=== PATIENT | female | born 1990 | race American Indian/Alaskan Native ===

== ENCOUNTER 2016-10-16 18:26 | Emergency (ER) | payer OTHER ==
--- NOTE | 2016-10-16 19:11 | ED PDOC ---
HPI: Abdomen Time Seen by Provider: 10/16/16 18:42 Chief Complaint (Nursing): Abdominal Pain Chief Complaint (Provider): Abdominal Pain History Per: Patient History/Exam Limitations: no limitations Onset/Duration Of Symptoms: Days (x3), Worse Since (over the past 24 hours) Outside of [place] travel?: No Current Symptoms Are (Timing): Still Present Location Of Pain/Discomfort: RLQ Quality Of Discomfort: Other (w/mild radiation to low back) Associated Symptoms: Chills, Nausea, Vomiting (x1, yesterday, non-bloody), Diarrhea (today, multiple episodes, watery/non-bloody/yellow), Loss Of Appetite , Other (diffuse myalgias; no vaginal complaints). denies: Urinary Symptoms Additional Complaint(s): Samuya Gomez is a 25 year old female, with no pertinent past medical history , who presents to the ED on 10/16/16 for the evaluation of RLQ abdominal pain that she has experienced over the past 3 days. Pain, further described as radiating mildly into her lower back, was initially mild in intensity but has acutely worsened over the past 24 hours; prompting ED visit. Multiple episodes of watery/non-bloody/yellow diarrhea also reported in addition to chills, diffuse myalgias, decreased appetite and a singular episode of non-bloody vomiting. Denies urinary or vaginal complaints. No medications for symptom relief taken prior to arrival. Of note, patient's LMP is reported as of 09/26/16 and, though it had arrived on time, was shorter than usual; lasting only for 3 days. PMD: [facility], [place] [facility] [place] Medical History Reviewed: Historical Data, Nursing Documentation, Vital Signs Vital Signs: Last Vital Signs Temp 98 F 10/16/16 20:11 Pulse 79 10/16/16 20:11 Resp BP 124/64 10/16/16 20:11 Pulse Ox - Medical History PMH: No Chronic Diseases - Surgical History Surgical History: (x2) - Family History Family History: States: Unknown Family Hx - Social History Current smoker - smoking cessation education provided: Yes Alcohol: Social Drugs: Denies - Home Medications Home Medications: Ambulatory Orders Medication Instructions Recorded Dicyclomine [Bentyl] 20 mg PO BID PRN #30 tab 10/16/16 Naproxen [Naprosyn] 1 tab PO BID PRN #30 tab 10/16/16 Ondansetron ODT [Zofran ODT] 1 odt PO Q6 PRN #20 odt 10/16/16 - Allergies Allergies/Adverse Reactions: Allergies Allergy/AdvReac Type Severity Reaction Status Date / Time No Known Allergies Allergy Verified 03/27/14 11:51 Review of Systems ROS Statement: Except As Marked, All Systems Reviewed And Found Negative Constitutional: Positive for: Chills, Other (diffuse myalgias) Gastrointestinal: Positive for: Nausea, Vomiting (x1, non-bloody), Abdominal Pain (RLQ), Diarrhea (yellow/watery/non-bloody, multiple episodes), Other ( decreased appetite) Genitourinary Female: Negative for: Dysuria, Frequency, Hematuria, Vaginal Discharge, Vaginal Bleeding Physical Exam - Reviewed Nursing Documentation Reviewed: Yes Vital Signs Reviewed: Yes - Physical Exam Appears: Positive for: Non-toxic, In Acute Distress (mild painful) Head Exam: Positive for: ATRAUMATIC, NORMOCEPHALIC Skin: Positive for: Normal Color, Warm, Dry Eye Exam: Positive for: Normal appearance, PERRL ENT: Positive for: Normal ENT Inspection Cardiovascular/Chest: Positive for: Regular Rate, Rhythm. Negative for: Murmur Respiratory: Positive for: Normal Breath Sounds. Negative for: Respiratory Distress Gastrointestinal/Abdominal: Positive for: Soft, Tenderness (RLQ), Other (mildly obese). Negative for: Mass, Distended, Guarding, Rebound Back: Positive for: Normal Inspection. Negative for: L CVA Tenderness, R CVA Tenderness Neurologic/Psych: Positive for: Alert, Oriented - Laboratory Results Result Diagrams: 10/16/16 19:56 10/16/16 19:56 Urine dip results: Positive for: Blood (trace), Ketones (trace). Negative for: Leukocyte Esterase, Nitrate, Glucose, Bilirubin, Protein Medical Decision Making Medical Decision Makin:33 Initial Impression: abdominal pain Differential diagnoses include but are not limited to appendicitis, colitis, enteritis, ovarian cyst, fibroid. Initial Plan: * CT A/P w/IV contrast only * Labs * PTT * PT * Upreg * Udip * Urinalysis * Urine Culture * Blood Culture * Stool Culture * OVA/Parasite * Lactated Ringer's 1000ml at 1000mls/hr * Dextrose 1000ml at 100mls/hr * Toradol 15mg IVP * Zofran 4mg IVP * Reevaluation 19:33 Udip shows trace ketones and trace blood, no leukocyte esterase. All else negative. EXAM: CT Abdomen and Pelvis With Intravenous Contrast CLINICAL HISTORY: 25 years old, female; Pain; Abdominal pain; Localized; Lower; Prior surgery; Surgery date: 6+ months; Surgery type: x2 2006 2011. Pelvis pain. Constipation x 2 days ; Additional info: Rlq pain TECHNIQUE: Axial computed tomography images of the abdomen and pelvis with intravenous contrast. This CT exam was performed using one or more of the following dose reduction techniques : automated exposure control, adjustment of the mA and/or kV according to patient size, and/ or use of iterative reconstruction technique. Coronal and sagittal reformatted images were created and reviewed. CONTRAST: 90 mL of OMNIPAQUE administered intravenously. COMPARISON: No relevant prior studies available. FINDINGS: Lower thorax: No acute findings. ABDOMEN: Liver: Mild fatty infiltration. Gallbladder and bile ducts: No calcified stones. No ductal dilation. Pancreas: No ductal dilation. No mass. Spleen: No splenomegaly. Adrenals: No mass. Kidneys and ureters: No mass. No hydronephrosis. Stomach and bowel: Apparent mild mural thickening of few jejunal loops. No associated inflammatory stranding. No obstruction. Appendix: Normal caliber. No inflammation. PELVIS: Bladder: Unremarkable. Reproductive: Small ovarian follicles ABDOMEN and PELVIS: Intraperitoneal space: No significant fluid collection. No free air. Bones/joints: No acute fracture. Soft tissues: Small umbilical hernia containing fat. Vasculature: Unremarkable. No abdominal aortic aneurysm. Lymph nodes: Several subcentimeter short axis mesenteric lymph nodes, nonspecific. IMPRESSION: 1. Possible mild enteritis. Clinical correlation is needed. 2. Incidental/non-acute findings are described above. Thank you for allowing us to participate in the care of your patient. Dictated and Authenticated by: Noble Novak MD 10/16/2016 10:08 PM Eastern Time ([place] & [place]) Labs with no clinically significant lab abnormalities Pt initially had some relief with toradol, but not complete, therefore morphine given. DW pt findings and plan of care. Pt to be dc'd on Bentyl, naprosyn, zofran. Scribe Attestation: Documented by Victoria Espinoza, acting as a scribe for Miranda Chirinos MD. Provider Scribe Attestation: All medical record entries made by the Scribe were at my direction and personally dictated by me. I have reviewed the chart and agree that the record accurately reflects my personal performance of the history, physical exam, medical decision making, and the department course for this patient. I have also personally directed, reviewed, and agree with the discharge instructions and disposition. Disposition - Clinical Impression Clinical Impression: Abdominal pain Counseled Patient/Family Regarding: Studies Performed, Diagnosis - Disposition Referrals: Grant Scott MD [Staff Provider] - 10/18/16 [facility] [Outside] Disposition: Routine/Home Disposition Time: 22:00 Condition: IMPROVED Prescriptions: Dicyclomine [Bentyl] 20 mg PO BID PRN #30 tab PRN Reason: abdominal pain Naproxen [Naprosyn] 1 tab PO BID PRN #30 tab PRN Reason: Pain Ondansetron ODT [Zofran ODT] 1 odt PO Q6 PRN #20 odt PRN Reason: Nausea/Vomiting Instructions: Acute Abdominal Pain (ED) Forms: [facility] ED School/Work Excuse
[2016-10-16] MEDS ORDERED: Lactated Ringer's 1,000 ML IV STA (19:33)
[2016-10-16] MEDS ORDERED: Dextrose 5%/Lactated Ringer's 1,000 ML IV SCH (19:45)
[2016-10-16 20:05] LABS: BASO # 0.1 K/uL (0.0-0.2); BASO % 0.7 % (0.0-2.0); EOS % 0.6 % (0.0-4.0); HEMATOCRIT 36.1 % (34.0-47.0); LYMPH # 2.5 K/uL (1.0-4.3); MEAN CELL VOLUME 89.6 fl (81.0-99.0); MEAN CORPUSCULAR HEMOGLOBIN 28.9 pg (27.0-31.0); MEAN CORPUSCULAR HGB CONC 32.2 g/dL (33.0-37.0); MEAN PLATELET VOLUME 8.6 fl (7.2-11.7); MONO # 0.5 K/uL (0.0-0.8); MONO % 6.3 % (0.0-10.0); NEUT # 4.7 K/uL (1.8-7.0); NEUT % 60.4 % (50.0-75.0); WHITE BLOOD COUNT 7.7 K/uL (4.8-10.8)
[2016-10-16 20:12] VITALS: BP 124/64; PULSE 79; TEMP 98
[2016-10-16 20:16] LABS: ALB/GLOB RATIO 1.1 (1.0-2.1); ALKALINE PHOSPHATASE 49 U/L (38-126); ALT/SGPT 28 U/L (9-52); AST/SGOT 19 U/L (14-36); BILIRUBIN,TOTAL 0.2 mg/dl (0.2-1.3); BLOOD UREA NITROGEN 12 mg/dl (7-17); CARBON DIOXIDE 28 mmol/L (22-30); CHLORIDE 104 mmol/L (98-107); GFR AFRICAN-AMERICAN > 60; GLUCOSE,RANDOM 111 mg/dL (65-105); POTASSIUM 3.6 MMOL/L (3.6-5.0); SODIUM 141 mmol/l (132-148); TOTAL PROTEIN 7.4 G/DL (6.3-8.2)
[2016-10-16 20:25] LABS: PARTIAL THROMBOPLASTIN TIME 26.1 SECONDS (23.3-32.5); RBC URINE 6 /hpf (0-3); URINE BACTERIA RARE (<OCC); URINE BILIRUBIN NEGATIVE (NEGATIVE); URINE COLOR YELLOW (YELLOW); URINE GLUCOSE (UA) NEG (Normal); URINE KETONE NEGATIVE (NEGATIVE); URINE PROTEIN 30 mg/dL (NEGATIVE); URINE UROBILINOGEN 0.2-1.0 mg/dL (0.2-1.0); WBC URINE 2 /hpf (0-5)
[2016-10-16 20:26] LABS: URINE BLOOD SMALL (NEGATIVE); URINE LEUKOCYTE ESTERASE NEGATIVE Leu/uL (Negative)
--- NOTE | 2016-10-16 22:08 | CT ---
EXAM: CT Abdomen and Pelvis With Intravenous Contrast CLINICAL HISTORY: 25 years old, female; Pain; Abdominal pain; Localized; Lower; Prior surgery; Surgery date: 6+ months; Surgery type: x2 2006 2011. Pelvis pain. Constipation x 2 days; Additional info: Rlq pain TECHNIQUE: Axial computed tomography images of the abdomen and pelvis with intravenous contrast. This CT exam was performed using one or more of the following dose reduction techniques: automated exposure control, adjustment of the mA and/or kV according to patient size, and/or use of iterative reconstruction technique. Coronal and sagittal reformatted images were created and reviewed. CONTRAST: 90 mL of OMNIPAQUE administered intravenously. COMPARISON: No relevant prior studies available. FINDINGS: Lower thorax: No acute findings. ABDOMEN: Liver: Mild fatty infiltration. Gallbladder and bile ducts: No calcified stones. No ductal dilation. Pancreas: No ductal dilation. No mass. Spleen: No splenomegaly. Adrenals: No mass. Kidneys and ureters: No mass. No hydronephrosis. Stomach and bowel: Apparent mild mural thickening of few jejunal loops. No associated inflammatory stranding. No obstruction. Appendix: Normal caliber. No inflammation. PELVIS: Bladder: Unremarkable. Reproductive: Small ovarian follicles. ABDOMEN and PELVIS: Intraperitoneal space: No significant fluid collection. No free air. Bones/joints: No acute fracture. Soft tissues: Small umbilical hernia containing fat. Vasculature: Unremarkable. No abdominal aortic aneurysm. Lymph nodes: Several subcentimeter short axis mesenteric lymph nodes, nonspecific. IMPRESSION: 1. Possible mild enteritis. Clinical correlation is needed. 2. Incidental/non-acute findings are described above.
== END 2016-10-16 22:50 | disposition home or self-care (01) ==
LOC: H.ER 18:26
DX: R10.9 Unspecified abdominal pain (principal)